=== PATIENT | male | born 1985 | race Caucasian/White ===

== ENCOUNTER → 2021-03-11 | Day surgery (SDC) | payer BC ==
[~2021-03-11] MED LIST: ALBUTEROL INH; LAMOTRIGINE100 MG PO; METOCLOPRAMIDE HCL 10 MG/2ML VIAL ONE; MIDAZOLAM HCL 2 MG/2 ML VIAL ONE; POVIDONE IODINE 0.05% 0.05 % ML PO ONE; PRISTIQ ER100 MG PO; PROPOFOL IV EMULSION 10 MG/ML 20 ML VIAL ONE
[2021-03-11 16:35] VITALS: BP 114/78
[2021-03-11 16:51] LABS: WBC,FECAL (FECAL LACTOFERRIN) NEGATIVE (NEGATIVE)
[2021-03-12 13:35] LABS: C DIFFICILE TOXIN A&B AMP PROB NEGATIVE (NEGATIVE)
== END | disposition home or self-care (01) ==
LOC: OR 17:04
PROVIDERS: ATTEND Internal Medicine Gastroenterology
DX: K20.0 Eosinophilic esophagitis (principal); K57.30 Diverticulosis of large intestine without perforation or abscess without bleeding; K52.9 Noninfective gastroenteritis and colitis, unspecified; K63.5 Polyp of colon; K62.89 Other specified diseases of anus and rectum; R14.0 Abdominal distension (gaseous); Z98.84 Bariatric surgery status; K92.1 Melena; Z90.3 Acquired absence of stomach [part of]; K59.09 Other constipation; R19.7 Diarrhea, unspecified; G47.33 Obstructive sleep apnea (adult) (pediatric); R86.9 Unspecified abnormal finding in specimens from male genital organs; Z01.812 Encounter for preprocedural laboratory examination; Z20.822 Contact with and (suspected) exposure to COVID-19
CPT/HCPCS: 45380; 83630; 83993; 87045; 87177; 87328; 87493; C9113; J2250; J2704; J2765; U0002; 43239

== ENCOUNTER → 2021-04-14 | Outpatient (CLI) | payer BC ==
[~2021-04-14] MED LIST changes: -METOCLOPRAMIDE HCL 10 MG/2ML VIAL ONE; -MIDAZOLAM HCL 2 MG/2 ML VIAL ONE; -POVIDONE IODINE 0.05% 0.05 % ML PO ONE; -PROPOFOL IV EMULSION 10 MG/ML 20 ML VIAL ONE
== END ==
LOC: DX 09:22
PROVIDERS: ATTEND Internal Medicine Gastroenterology
DX: K52.9 Noninfective gastroenteritis and colitis, unspecified (principal)
CPT/HCPCS: 74250; U0002